=== PATIENT | male | born 1955 | race Caucasian/White ===

== ENCOUNTER → 2016-08-16 | Outpatient (CLI) | payer BC ==
[~2016-08-16] MED LIST: AMINOPHYLLINE 25 MG/ML, 10ML ONE; CARV12.543 PO; CLOP75TA22 PO; HYDR-3144 PO; INSU100I11 SC; INSU100I13 SC; IRBE150T49 PO; LIRA0.6P SC; METF10002 PO; NIAC500T PO; NITR0.4T8 SL; REGADENOSON 0.4 MG/5 ML SYRINGE ONE; SIMV40TA3 PO; SPIR25TA PO; WARF7.5T6 PO
== END | disposition home or self-care (01) ==
LOC: CFH 08:16
PROVIDERS: ATTEND Internal Medicine Cardiovascular Disease
DX: Z98.61 Coronary angioplasty status (principal); R07.9 Chest pain, unspecified
CPT/HCPCS: 78452; 93017; A9502; J0280; J2785

== ENCOUNTER → 2018-03-28 | Outpatient (CLI) | payer BC ==
[~2018-03-28] MED LIST changes: +ALBU8.5H8 INH; -AMINOPHYLLINE 25 MG/ML, 10ML ONE; +ASCORBIC ACID PO; +CHOL10003 PO; -CLOP75TA22 PO; +CLOP75TA52 PO; -HYDR-3144 PO; +HYDR-3245 PO; +INSU100I34 SC; +MULT1TAB60 PO; +NITR0.4T28 SL; -NITR0.4T8 SL; +PIOG15TA4 PO; -REGADENOSON 0.4 MG/5 ML SYRINGE ONE; +SIMV40TA PO; +TADA5TAB2 PO; +UBID100C10 PO; +VITA100C8 PO; +WARF7.5T46 PO; -WARF7.5T6 PO; +[UNRECOGNIZED DRUG - OTHER] PO
[2018-03-28 11:34] LABS: BASOPHILS # (AUTO) 0.04 x10^3/uL (0-0.1); BASOPHILS % (AUTO) 1 % (0-1); EOSINOPHILS # (AUTO) 0.07 x10^3/uL (0-0.4); EOSINOPHILS % (AUTO) 1 % (1-7); LYMPHOCYTES % (AUTO) 32 % (22-44); MD NO; MEAN CORPUSCULAR HEMOGLOBIN 31.3 pg (27.5-34.5); MEAN CORPUSCULAR HGB CONC 34.1 g/dL (33.2-36.2); MEAN CORPUSCULAR VOLUME 91.9 fL (81-97); MEAN PLATELET VOLUME 8.4 fL (7.4-10.4); MONOCYTES # (AUTO) 0.68 x10^3/uL (0.2-0.8); MONOCYTES % (AUTO) 13 % (2-9); NEUTROPHILS # (AUTO) 2.91 x10^3/uL (1.8-6.8); NEUTROPHILS % (AUTO) 54 % (42-75); PLATELET COUNT 225 x10^3/uL (130-400); RED BLOOD COUNT 4.36 x10^6/uL (4.38-5.82); RED CELL DISTRIBUTION WIDTH 13.6 % (9.4-14.8)
[2018-03-28 11:39] LABS: INTERNATIONAL NORMALIZED RATIO 1.76 (0.93-1.1); PROTHROMBIN TIME 18.1 Seconds (9.6-11.5)
[2018-03-28 11:43] LABS: ALBUMIN 3.6 g/dL (3.4-5.0); ANION GAP 4 mmol/L (5-15); CALCIUM 9.5 mg/dL (8.5-10.1); CHLORIDE 103 mmol/L (98-107)
[2018-03-28 11:48] LABS: ALANINE AMINOTRANSFERASE 34 U/L (12-78); ALKALINE PHOSPHATASE 64 U/L (45-117); CREATININE 0.84 mg/dL (0.7-1.3); TOTAL PROTEIN 7.1 g/dL (6.4-8.2)
== END | disposition home or self-care (01) ==
LOC: STAR 10:24
PROVIDERS: ATTEND Internal Medicine Gastroenterology
DX: Z12.11 Encounter for screening for malignant neoplasm of colon (principal); Z12.12 Encounter for screening for malignant neoplasm of rectum
CPT/HCPCS: 36415; 80053; 85025; 85610; 85730; 93005

== ENCOUNTER 2018-04-04 05:41 | Day surgery (SDC) | payer BC, MEDICARE ==
[~2018-04-04] VITALS: Ht 180.3 cm; Wt 110.0 kg
[2018-04-04 06:21] VITALS: BP 117/70
[2018-04-04] MEDS ORDERED: LACTATED RINGERS 1,000 ML IV SCH (06:26)
[2018-04-04 07:03] LABS: INTERNATIONAL NORMALIZED RATIO 1.23 (0.93-1.1); PROTHROMBIN TIME 12.7 Seconds (9.6-11.5)
[2018-04-04] MEDS ORDERED: PROPOFOL 50 ML ONE (07:26)
[2018-04-04] MEDS ORDERED: ONDANSETRON 2MG/ML, 2ML IV PRN (07:30)
[2018-04-04] MEDS ORDERED: FENTANYL PF 100 MCG/2ML IV PRN (07:30)
[2018-04-04] MEDS ORDERED: ACETAMINOPHEN 325 MG TABLET PO PRN (07:30)
[2018-04-04] MEDS ORDERED: OXYcodone 5 MG/5 ML ORAL.SOL UDC PO PRN (07:30)
== END 2018-04-04 09:15 | disposition home or self-care (01) ==
LOC: OUT 05:41
PROVIDERS: ATTEND Internal Medicine Gastroenterology
DX: Z12.11 Encounter for screening for malignant neoplasm of colon (principal); D12.3 Benign neoplasm of transverse colon; K64.0 First degree hemorrhoids; K57.30 Diverticulosis of large intestine without perforation or abscess without bleeding; I25.10 Atherosclerotic heart disease of native coronary artery without angina pectoris; I11.0 Hypertensive heart disease with heart failure; I50.9 Heart failure, unspecified; E11.9 Type 2 diabetes mellitus without complications; Z95.5 Presence of coronary angioplasty implant and graft; J45.909 Unspecified asthma, uncomplicated; E78.5 Hyperlipidemia, unspecified; Z79.4 Long term (current) use of insulin; Z79.01 Long term (current) use of anticoagulants; Z98.890 Other specified postprocedural states; Z79.899 Other long term (current) drug therapy; Z72.89 Other problems related to lifestyle; Z87.891 Personal history of nicotine dependence; Z82.49 Family history of ischemic heart disease and other diseases of the circulatory system; Z80.1 Family history of malignant neoplasm of trachea, bronchus and lung; Z80.43 Family history of malignant neoplasm of testis; Z86.718 Personal history of other venous thrombosis and embolism; M19.90 Unspecified osteoarthritis, unspecified site
CPT/HCPCS: 45385; 82962; 85610; 85730; 88305; J2704; J7120

== ENCOUNTER 2018-05-15 16:20 | Emergency (ER) | payer BC ==
[~2018-05-15] VITALS: Ht 180.3 cm; Wt 112.6 kg
[2018-05-15 17:09] LABS: BASOPHILS # (AUTO) 0.07 x10^3/uL (0-0.1); BASOPHILS % (AUTO) 1 % (0-1); EOSINOPHILS # (AUTO) 0.11 x10^3/uL (0-0.4); EOSINOPHILS % (AUTO) 2 % (1-7); LYMPHOCYTES # (AUTO) 1.58 x10^3/uL (1-3.4); LYMPHOCYTES % (AUTO) 26 % (22-44); MD NO; MEAN CORPUSCULAR HEMOGLOBIN 31.5 pg (27.5-34.5); MEAN CORPUSCULAR HGB CONC 34.3 g/dL (33.2-36.2); MEAN PLATELET VOLUME 8.6 fL (7.4-10.4); MONOCYTES # (AUTO) 0.79 x10^3/uL (0.2-0.8); MONOCYTES % (AUTO) 13 % (2-9); NEUTROPHILS # (AUTO) 3.56 x10^3/uL (1.8-6.8); NEUTROPHILS % (AUTO) 58 % (42-75); PLATELET COUNT 216 x10^3/uL (130-400); RED BLOOD COUNT 4.26 x10^6/uL (4.38-5.82)
[2018-05-15 17:18] LABS: ALBUMIN 3.7 g/dL (3.4-5.0); ANION GAP 6 mmol/L (5-15); CALCIUM 8.9 mg/dL (8.5-10.1); CHLORIDE 107 mmol/L (98-107); CREATININE 0.99 mg/dL (0.7-1.3)
[2018-05-15 17:26] LABS: TROPONIN I 0.016 ng/mL (0.000-0.045)
[2018-05-15] MEDS ORDERED: MAGNESIUM SULFATE PMX 2GM/50ML 50 ML IV ONE (17:30)
[2018-05-15] MEDS ORDERED: ASPIRIN 81 MG TABLET CHEW PO ONE (17:30)
[2018-05-15] MEDS ORDERED: ASPIRIN 81 MG TABLET CHEW ONE (17:40)
[2018-05-15 20:42] VITALS: BP 130/61
== END 2018-05-15 20:43 | disposition home or self-care (01) ==
LOC: ED 19:04
DX: I49.01 Ventricular fibrillation (principal); E83.42 Hypomagnesemia; E11.65 Type 2 diabetes mellitus with hyperglycemia; I25.2 Old myocardial infarction; Z95.0 Presence of cardiac pacemaker
CPT/HCPCS: 36415; 71045; 80048; 82040; 83735; 84484; 85025; 93005; 96365; 96366; 99284; J3475

== ENCOUNTER → 2018-06-28 | Outpatient (CLI) | payer OTHER, BC ==
[~2018-06-28] MED LIST changes: +REGADENOSON 0.4 MG/5 ML SYRINGE ONE
== END | disposition home or self-care (01) ==
LOC: CFH 08:04
PROVIDERS: ATTEND Internal Medicine Cardiovascular Disease
DX: I25.5 Ischemic cardiomyopathy (principal); Z95.810 Presence of automatic (implantable) cardiac defibrillator
CPT/HCPCS: 78452; 93017; A9502; J2785

== ENCOUNTER → 2019-07-14 | Outpatient (CLI) | payer BC ==
[~2019-07-14] MED LIST changes: -PIOG15TA4 PO; +PIOG15TA69 PO; +SIMV40TA20 PO; -SIMV40TA3 PO
== END | disposition home or self-care (01) ==
LOC: CVU 06:50
PROVIDERS: ATTEND Internal Medicine Cardiovascular Disease
DX: I11.9 Hypertensive heart disease without heart failure (principal); I25.5 Ischemic cardiomyopathy; I48.91 Unspecified atrial fibrillation
CPT/HCPCS: 78452; 93017; A9502; C8929; J2785; Q9957

== ENCOUNTER 2020-06-16 09:57 | Day surgery (SDC) | payer BC ==
[~2020-06-16] VITALS: Ht 172.7 cm; Wt 121.0 kg
[~2020-06-16 09:57] MED LIST changes: -HYDR-3245 PO; +HYDR1TAB53 PO; +MULT-449 PO; -MULT1TAB60 PO; -REGADENOSON 0.4 MG/5 ML SYRINGE ONE; +VITA100C10 PO; -VITA100C8 PO
[2020-06-16] MEDS ORDERED: SODIUM CHLORIDE 0.9% 1,000 ML IV SCH (10:30)
[2020-06-16] MEDS ORDERED: FURO20TA3 PO (10:42)
[2020-06-16] MEDS ORDERED: MELA1LIQ PO (10:42)
[2020-06-16] MEDS ORDERED: CHOL10003 PO (10:42)
[2020-06-16] MEDS ORDERED: VIT1CAPS9 PO (10:42)
[2020-06-16] MEDS ORDERED: SACU1TAB7 PO (10:42)
[2020-06-16 10:43] VITALS: BP 137/78
[2020-06-16] MEDS ORDERED: PLEASE ENTER HEIGHT AND WEIGHT MC SCH (11:00)
[2020-06-16 11:03] LABS: BASOPHILS % (AUTO) 1 % (0-1); EOSINOPHILS % (AUTO) 1 % (1-7); LYMPHOCYTES % (AUTO) 18 % (22-44); MEAN CORPUSCULAR HEMOGLOBIN 30.8 pg (27.5-34.5); MEAN CORPUSCULAR HGB CONC 33.6 g/dL (33.2-36.2); MEAN PLATELET VOLUME 8.8 fL (7.4-10.4); MONOCYTES % (AUTO) 12 % (2-9); NEUTROPHILS % (AUTO) 69 % (42-75); PLATELET COUNT 179 x10^3/uL (130-400); RED BLOOD COUNT 4.03 x10^6/uL (4.38-5.82); RED CELL DISTRIBUTION WIDTH 14.3 % (9.4-14.8)
[2020-06-16 11:04] LABS: MD NO
[2020-06-16 11:11] LABS: ANION GAP 7 mmol/L (5-15); CALCIUM 9.3 mg/dL (8.5-10.1); CHLORIDE 108 mmol/L (98-107)
[2020-06-16 11:29] LABS: INTERNATIONAL NORMALIZED RATIO 1.81 (0.93-1.1); PROTHROMBIN TIME 19.1 Seconds (9.6-11.5)
[2020-06-16] MEDS ORDERED: CEFAZOLIN 1,000 MG ONE (11:52)
[2020-06-16] MEDS ORDERED: MIDAZOLAM 1 MG/ML, 5ML ONE (11:52)
[2020-06-16] MEDS ORDERED: LIDOCAINE 2%, 20ML ONE (11:52)
[2020-06-16] MEDS ORDERED: CEFAZOLIN PMX 1GM/50ML 50 ML ONE (11:52)
[2020-06-16] MEDS ORDERED: FENTANYL PF 100 MCG/2ML ONE (11:52)
[2020-06-16] MEDS ORDERED: HOLD MEDICATION MC PRN (13:30)
[2020-06-16] MEDS ORDERED: SODIUM CHLORIDE FLUSH 10ML SYR IVF SCH (21:00)
== END 2020-06-16 15:01 | disposition home or self-care (01) ==
LOC: CACL 09:57
PROVIDERS: ATTEND Internal Medicine Cardiovascular Disease
DX: Z45.02 Encounter for adjustment and management of automatic implantable cardiac defibrillator (principal); I25.5 Ischemic cardiomyopathy; I11.0 Hypertensive heart disease with heart failure; I50.9 Heart failure, unspecified; I25.2 Old myocardial infarction; E11.9 Type 2 diabetes mellitus without complications; Z79.01 Long term (current) use of anticoagulants; Z79.4 Long term (current) use of insulin; Z79.891 Long term (current) use of opiate analgesic; Z79.899 Other long term (current) drug therapy; Z95.5 Presence of coronary angioplasty implant and graft
CPT/HCPCS: 33264; 36415; 80048; 85025; 85610; 99156; 99157; C1882; J0690; J2250; J3010